=== PATIENT | female | born 1990 | race Caucasian/White ===

== ENCOUNTER 2021-05-25 15:02 | Emergency (ER) | payer OTHER, SELFPAY ==
[2021-05-25 15:24] VITALS: BP 108/62; PULSE 77; RESP 17; TEMP 37.3; O2SAT 100; BMI 23.1
[2021-05-25 15:43] LABS: COVID19 -Nasal RAPID POSITIVE (Negative)
--- NOTE | 2021-05-25 16:08 | ED.URI ---
HPI - URI/Sore Throat <Elliott Maurice PA-C - Last Filed: 05/25/21 16:12> General Chief Complaint: Upper Respiratory Symptoms Stated Complaint: Lost of Taste and Smell Time Seen by Provider: 05/25/21 15:04 Source: patient Mode of arrival: Ambulatory History of Present Illness HPI Narrative: Ban presents today with chief complaint of loss of taste, loss of smell that started yesterday. She is fully vaccinated against COVID and denies any known exposures. Her friend who is also having similar symptoms presents today with her as well. She is otherwise healthy and has no known significant past medical problems. She denies any chest pain, shortness of breath or any other acute concerns or complaints at this time. Related Data Home Medications Medication Instructions Recorded Confirmed etonogestrel 0.12 mg-ethinyl vag ring VAGINAL 05/25/21 estradiol 0.015 mg/24 hr vaginal ring (NuvaRing) Allergies Allergy/AdvReac Type Severity Reaction Status Date / Time No Known Drug Allergies Allergy Verified 05/25/21 15:27 Review of Systems <Elliott Maurice PA-C - Last Filed: 05/25/21 16:12> Review of Systems Narrative: As per HPI Patient History <Elliott Maurice PA-C - Last Filed: 05/25/21 16:12> Social History Smoking Status: Never smoker Smoking Status: Never smoker alcohol intake frequency: a few times a week Substance Use Type: does not use Exam <Elliott Maurice PA-C - Last Filed: 05/25/21 16:12> Narrative Exam Narrative: Exam Narrative: Const General: cooperative, healthy appearing, comfortable, no acute distress, well developed and well groomed Nutritional Appearance: average body habitus Orientation: alert and oriented x3 HENMT Head: normal to inspection and atraumatic Ears: hearing grossly normal bilaterally Nose: external nose normal and nares normal Face and sinus: normal facial exam Neck Neck: normal visual inspection and supple Resp Effort & Inspection: normal respiratory effort, able to speak in complete sentences, no audible wheezes, not labored, no nasal flaring and no respiratory distress Neuro General: alert, oriented x3, gait normal, tone normal and moves all extremities Cognition: normal cognition Speech: speech normal Gait: normal gait Psych Appearance: grossly normal and well kempt Mental Status: mental status grossly normal Speech and Movement: speech and movement normal Mood: congruent mood Affect: normal affect Initial Vital Signs Initial Vital Signs: Vital Signs Temperature 99.1 F 05/25/21 15:24 Pulse Rate 77 05/25/21 15:24 Respiratory Rate 17 05/25/21 15:24 Blood Pressure 108/62 05/25/21 15:24 Pulse Oximetry 100 05/25/21 15:24 <Majo Wynn DO - Last Filed: 05/26/21 07:47> Initial Vital Signs Initial Vital Signs: Vital Signs Temperature 99.1 F 05/25/21 15:24 Pulse Rate 77 05/25/21 15:24 Respiratory Rate 17 05/25/21 15:24 Blood Pressure 108/62 05/25/21 15:24 Pulse Oximetry 100 05/25/21 15:24 Course <Elliott Maurice PA-C - Last Filed: 05/25/21 16:12> Orders Ordered: ED Orders 05/25/21 15:15 COVID19 -Nasal swab/Pre-Proc Stat Vital Signs Vital signs: Vital Signs - 8 hr 05/25/21 15:24 Temperature 99.1 F Pulse Rate 77 Respiratory Rate 17 Blood Pressure 108/62 Pulse Oximetry 100 <DO Rose Arredondo Last Filed: 05/26/21 07:47> Orders Ordered: ED Orders 05/25/21 15:15 COVID19 -Nasal swab/Pre-Proc Stat Vital Signs Vital signs: Vital Signs - 8 hr 05/25/21 15:24 Temperature 99.1 F Pulse Rate 77 Respiratory Rate 17 Blood Pressure 108/62 Pulse Oximetry 100 MDM - URI/Sore Throat <DILLON Arias Last Filed: 05/25/21 16:12> Lab Data Labs: Lab Results 05/25/21 Range/Units 15:15 SARS-CoV-2 (PCR) Positive H (Negative) MDM Narrative Medical decision making narrative: Patient are young, fully vaccinated and have reassuring vital signs and physical examination. Recommend following CDC guidelines for home isolation at this time. Return precautions were discussed and patient verbalizes understanding and agreement to the plan. <DO Rose Arredondo Last Filed: 05/26/21 07:47> Lab Data Labs: Lab Results 05/25/21 Range/Units 15:15 SARS-CoV-2 (PCR) Positive H (Negative) Discharge Plan Departure Patient Disposition: Home Clinical Impression: COVID-19 Instructions: DI for COVID-19 (Suspected or Confirmed ) Activity Restrictions/Additional Instructions: It was very nice to meet you this afternoon. Please follow the CDC guidelines for self isolation. I am still recommending the 10 day isolation versus 5 day but please talk to your come and about they prefer. If he develops chest pain, shortness of breath, or any other acute concerns or complaints please return for re-evaluation. Thank you Elliott Maurice PA-C Prescriptions: No Action etonogestrel-ethinyl estradiol [NuvaRing] 0.12-0.015 mg/24 hr Ring VAGINAL 0RF Referrals: Miscellaneous,Doctor, [Primary Care Provider] - <Majo Wynn DO - Last Filed: 05/26/21 07:47> Cosign ED Attending Staceyature Attestation: I was immediately available in the department for consultation. Documentation has been reviewed.
== END 2021-05-25 16:20 | disposition home or self-care (01) ==
PROVIDERS: Emergency Medicine; Emergency Provider Physician Assistant
DX: U07.1 COVID-19 (principal)
CPT/HCPCS: 87635; 99281; C9803

== ENCOUNTER 2022-06-19 15:54 | Emergency (ER) | payer OTHER, SELFPAY ==
[2022-06-19] VITALS (10 sets, daily range): BP systolic 98–117; BP diastolic 63–79; PULSE 66–82; RESP 19–24; TEMP 36.7; O2SAT 97–100; BMI 23.5
--- NOTE | 2022-06-19 16:24 | DI.RAD.S_ITS ---
PROCEDURE: XR CHEST 1V INDICATIONS: chest pain TECHNIQUE: One view of the chest was acquired. COMPARISON: None. FINDINGS: Surgical changes and devices: None. Lungs and pleura: Lungs are clear. No pleural effusions or pneumothorax. Mediastinum: Mediastinal contours appear normal. Heart size is normal. Bones and chest wall: No suspicious bony lesions. Overlying soft tissues appear unremarkable. IMPRESSION: No acute cardiopulmonary abnormality. Dictated by: Alexis Saravia M.D. on 06/19/2022 at 16:45 Approved by: Alexis Saravia M.D. on 06/19/2022 at 16:45
[2022-06-19 16:46] LABS: Add Manual Diff / Slide Review NO; Basophils Absolute Auto 0 /uL (0-100); Basophils Percent Auto 0.6 % (0-2); Eosinophils Absolute Auto 100 /uL (0-450); Eosinophils Percent Auto 0.8 % (2-4); Hematocrit 42.7 % (36-46); Hemoglobin 14.4 g/dL (12.0-16.0); Lymphocytes Absolute Auto 2100 /uL (1100-4500); Lymphocytes Percent Auto 25.6 % (25-40); Mean Corpuscular HGB Conc 33.8 % (30-36); Mean Corpuscular Hemoglobin 31.7 PG (26-34); Mean Corpuscular Volume 93.6 fL (80-100); Monocytes Absolute Auto 400 /uL (0-900); Monocytes Percent Auto 4.9 % (3-14); Neutrophils Absolute Auto 5600 /uL (1500-7000); Neutrophils Percent Auto 68.1 % (50-75); Platelet Count 218 X10^3/uL (150-400); Red Blood Cell Count 4.56 X10^6/uL (4.0-5.2); Red Cell Distribution Width 13.1 % (11.6-14.8); White Blood Cell Count 8.2 X10^3/uL (4.5-11.0)
[2022-06-19 16:51] LABS: INR 1.1 (0.9-1.3); Prothrombin Time 12.2 SECONDS (10.1-12.7)
[2022-06-19 16:54] LABS: PTT Partial Thromboplastin Tim 33 SECONDS (26-36)
[2022-06-19 17:17] LABS: Alanine Aminotransferase 17 IU/L (<35); Albumin Globulin Ratio 1.6 (1.0-2.8); Alkaline Phosphatase 70 U/L (38-126); Aspartate Aminotransferase 24 IU/L (14-36); BUN Creatinine Ratio 14.6 (6-22); Bilirubin Total 0.4 mg/dL (0.2-1.3); Blood Urea Nitrogen 13 mg/dL (7-17); Calcium 9.6 mg/dL (8.4-10.2); Carbon Dioxide 27 mmol/L (22-32); Chloride 100 mmol/L (98-107); Creatine Kinase 174 U/L (30-135); Estimated Glomerular Filt Rate > 60 mL/min (>60); Globulin 3.2 g/dL (1.7-4.1); Glucose 82 mg/dL (70-100); HEMOLYSIS < 15 (0-50); Lipase 150 U/L (23-300); Magnesium 2.2 mg/dL (1.6-2.3); Potassium 3.7 mmol/L (3.4-5.1); Sodium 137 mmol/L (137-145); Total Protein 8.2 g/dL (6.3-8.2)
[2022-06-19 17:28] LABS: Troponin I < 0.012 ng/mL (0.01-0.034)
--- NOTE | 2022-06-19 17:28 | ED_ITS ---
HPI - Chest Pain General Chief Complaint: Chest Pain Stated Complaint: Chest pain Time Seen by Provider: 06/19/22 17:22 Source: patient Mode of arrival: Family Vehicle Limitations: no limitations Related Data Home Medications Medication Instructions Recorded Confirmed etonogestrel 0.12 mg-ethinyl vag ring vaginal 05/25/21 estradiol 0.015 mg/24 hr vaginal ring (NuvaRing) Allergies Allergy/AdvReac Type Severity Reaction Status Date / Time No Known Drug Allergies Allergy Verified 05/25/21 15:27 Review of Systems Review of Systems ROS Unobtainable: All systems reviewed & are unremarkable except as noted in HPI and below Patient History Social History Smoking Status: Never smoker Smoking Status: Never smoker alcohol intake frequency: a few times a week Substance Use Type: does not use Exam Initial Vital Signs Initial Vital Signs: Vital Signs Pulse Rate 77 06/19/22 16:06 Respiratory Rate 20 06/19/22 16:06 Pulse Oximetry 99 06/19/22 16:06 Course Orders Ordered: ED Orders 06/19/22 16:09 EKG-12 Lead Routine 06/19/22 16:17 Complete Blood Count AUTO DIFF Stat Comprehensive Metabolic Panel Stat Lipase Stat Magnesium Stat Partial Thromboplastin Time Stat Prothrombin Time INR Stat Troponin & CK Cardiac Panel Stat 06/19/22 16:24 XR chest 1V Stat COVID19 -Nasal RAPID/Pre-Proc Stat EKG-12 Lead Stat Discontinued Medications Aspirin (Aspirin 81 Mg Chew Tab) 324 mg PO NOW ONE Stop: 06/19/22 16:25 Last Admin: 06/19/22 16:45 Dose: Not Given Documented By: PRAVEENA Vital Signs Vital signs: Vital Signs - 8 hr 06/19/22 16:25 06/19/22 16:06 06/19/22 16:07 Temperature 98.1 F Pulse Rate 82 77 Respiratory Rate 19 20 Blood Pressure 117/79 117/79 Pulse Oximetry 99 99 Oxygen Delivery Method Room Air 06/19/22 16:07 06/19/22 16:30 06/19/22 16:30 Temperature Pulse Rate 82 73 Respiratory Rate 23 20 Blood Pressure 108/68 Pulse Oximetry 99 100 Oxygen Delivery Method MDM - Chest Pain Lab Data 06/19/22 16:17 06/19/22 16:17 Labs: Lab Results 0206/19/22 06/19/22 Range/Units 16:17 16:17 16:17 WBC 8.2 (4.5-11.0) X10^3/uL RBC 4.56 (4.0-5.2) X10^6/uL Hgb 14.4 (12.0-16.0) g/dL Hct 42.7 (36-46) % MCV 93.6 (80-100) fL MCH 31.7 (26-34) PG MCHC 33.8 (30-36) % RDW 13.1 (11.6-14.8) % Plt Count 218 (150-400) X10^3/uL Neut % (Auto) 68.1 (50-75) % Lymph % (Auto) 25.6 (25-40) % [place] % (Auto) 4.9 (3-14) % Eos % (Auto) 0.8 L (2-4) % Baso % (Auto) 0.6 (0-2) % Neut # (Auto) 5600 (2636-1358) /uL Lymph # (Auto) 2100 (7145-5461) /uL [place] # (Auto) 400 (0-900) /uL Eos # (Auto) 100 (0-450) /uL Baso # (Auto) 0 (0-100) /uL PT 12.2 (10.1-12.7) SECONDS INR 1.1 (0.9-1.3) APTT 33 (26-36) SECONDS Sodium 137 (137-145) mmol/L Potassium 3.7 (3.4-5.1) mmol/L Chloride 100 (98-107) mmol/L Carbon Dioxide 27 (22-32) mmol/L BUN 13 (7-17) mg/dL Creatinine 0.89 (0.52-1.04) mg/dL Estimated GFR > 60 (>60) mL/min BUN/Creatinine Ratio 14.6 (6-22) Glucose 82 (70-100) mg/dL Calcium 9.6 (8.4-10.2) mg/dL Magnesium 2.2 (1.6-2.3) mg/dL Total Bilirubin 0.4 (0.2-1.3) mg/dL AST 24 (14-36) IU/L ALT 17 (<35) IU/L Alkaline Phosphatase 70 (38-126) U/L Total Creatine Kinase 174 H (30-135) U/L Total Protein 8.2 (6.3-8.2) g/dL Albumin 5.0 (3.5-5.0) g/dL Globulin 3.2 (1.7-4.1) g/dL Albumin/Globulin Ratio 1.6 (1.0-2.8) Lipase 150 (23-300) U/L Imaging Data Chest x-ray: Radiologist's Impression: Close Chest X-Ray (Signed) Alexis Saravia - 06/19/22 Launch?[address] [address] XRay Report Signed Patient: Ban Estrada MR#: [id number] : 1990 Acct:[id number] Age/Sex: 32 / F Date of Service: 06/19/22 Loc: ED Accession Number: [id number] ?? Procedure: XR chest 1V Ordering Provider: Majo Wynn D.O. PROCEDURE:? XR CHEST 1V ? INDICATIONS:? chest pain ? TECHNIQUE:? One view of the chest was acquired.? ? COMPARISON:? None. ? FINDINGS:? ? Surgical changes and devices:? None.? ? Lungs and pleura:? Lungs are clear.? No pleural effusions or pneumothorax.? ? Mediastinum:? Mediastinal contours appear normal.? Heart size is normal.? ? Bones and chest wall:? No suspicious bony lesions.? Overlying soft tissues appear unremarkable.? ? IMPRESSION:? No acute cardiopulmonary abnormality. ? ? ? Dictated by: Alexis Saravia M.D. on 06/19/2022 at 16:45 ? ? Approved by: Alexis Saravia M.D. on 06/19/2022 at 16:45?? ECG Data Attestation: I personally reviewed and interpreted this ECG as follows: Prior ECG tracings: not available for review Interpretation: Sinus rhythm rate of 77 DC 118 QRS 84 and QTC 445. Inverted T-wave in 3. Other ST elevation depression noted. Less than 1 mm Q-wave in 2 3 AVF. No priors a vailable for comparison. Discharge Plan Departure Prescriptions: No Action etonogestrel-ethinyl estradiol [NuvaRing] 0.12-0.015 mg/24 hr Ring VAGINAL Referrals: Miscellaneous,Doctor, [Primary Care Provider] -
[2022-06-19 17:32] LABS: CKMB % Relative Index 0.3 % (1.5-5.0); Creatine Kinase MB 0.48 ng/mL (<2.37)
[2022-06-19 17:44] LABS: D Dimer 229 ng/ml (<500)
--- NOTE | 2022-06-19 18:20 | ED_ITS ---
HPI - Chest Pain General Chief Complaint: Chest Pain Stated Complaint: Chest pain Time Seen by Provider: 06/19/22 17:22 Source: patient Mode of arrival: Family Vehicle Limitations: no limitations History of Present Illness HPI narrative: Patient is a healthy 32-year-old female who presents today with chest discomfo rt. She reports that she had strep back in March and April. She is chest discomfort off and on ever since. Usually in the center of her chest sometimes comes and goes. She is tried Tums, she said it does not help. Today she feels like it is spreading across right side of her chest. It is tender to touch it is not worse with breathing or movement. She did do arms and weights this morni ng. She typically does work out she did not notice that it was hurting during that time. She did take some panel ibuprofen without any relief. She is no family history of coronary artery disease. She is a nonsmoker. She denies nausea vomiting diaphoresis abdominal pain or other symptoms. Related Data Home Medications Medication Instructions Recorded Confirmed etonogestrel 0.12 mg-ethinyl vag ring vaginal 05/25/21 estradiol 0.015 mg/24 hr vaginal ring (NuvaRing) Allergies Allergy/AdvReac Type Severity Reaction Status Date / Time No Known Drug Allergies Allergy Verified 05/25/21 15:27 Review of Systems Review of Systems ROS Unobtainable: All systems reviewed & are unremarkable except as noted in HPI and below Patient History Social History Smoking Status: Never smoker Smoking Status: Never smoker alcohol intake frequency: a few times a week Substance Use Type: does not use Exam Initial Vital Signs Initial Vital Signs: Vital Signs Pulse Rate 77 06/19/22 16:06 Respiratory Rate 20 06/19/22 16:06 Pulse Oximetry 99 06/19/22 16:06 GENERAL: Well-appearing 32-year-old female and in no acute distress. HEENT: Head atraumatic,EOMI, pupils reactive, face symmetric, moist mucous membranes CARDIOVASCULAR: Regular rate and rhythm without murmurs, rubs or gallops. RESPIRATORY: Breath sounds equal bilaterally, no wheezes rales or rhonchi. ABDOMEN: Soft, nontender. No right upper quadrant pain no epigastric pain negative Fields's EXTREMITIES: Normal range of motion, no clubbing or edema. Neurovascularly intact NEUROLOGICAL: Alert and oriented x4.Normal gait and speech. SKIN: Warm, dry, no laceration, no petechiae, no rashes or lesions. Scores HEART Score Heart Score history: Slightly Suspicious Heart Score EKG: Normal Heart Score Age: < 45 years old Heart Score risk factors: No known risk factors Heart Score troponin: < or = to normal limit Heart Score Total: 0 PERC Score Age greater than or equal to 50 years: No Heart rate greater than or equal to 100 bpm: No Room Air O2 Sat less than 95%: No Unilateral leg swelling: No Recent trauma or surgery: No Hemoptysis: No Prior PE or DVT: No Hormone Use: Yes Total PERC Score: 1 Course Orders Ordered: ED Orders 06/19/22 16:17 Complete Blood Count AUTO DIFF Stat Comprehensive Metabolic Panel Stat D Dimer Stat Lipase Stat Magnesium Stat Partial Thromboplastin Time Stat Prothrombin Time INR Stat Troponin & CK Cardiac Panel Stat 06/19/22 16:24 XR chest 1V Stat EKG-12 Lead Stat 06/19/22 18:20 Trop I [Troponin I] Stat Discontinued Medications Aspirin (Aspirin 81 Mg Chew Tab) 324 mg PO NOW ONE Stop: 06/19/22 16:25 Last Admin: 06/19/22 16:45 Dose: Not Given Documented By: PRAVEENA Ketorolac Tromethamine (Ketorolac 30 Mg/Ml Vial) 15 mg IV NOW ONE Stop: 06/19/22 18:37 Last Admin: 06/19/22 18:45 Dose: 15 mg Documented By: PRAVEENA Vital Signs Vital signs: Vital Signs - 8 hr 06/19/22 17:30 06/19/22 17:30 06/19/22 18:00 Pulse Rate 74 Respiratory Rate 20 Blood Pressure 98/68 103/64 Pulse Oximetry 100 06/19/22 18:00 06/19/22 18:30 06/19/22 18:30 Pulse Rate 70 72 Respiratory Rate 20 24 Blood Pressure 112/74 Pulse Oximetry 99 99 06/19/22 19:00 06/19/22 19:00 06/19/22 19:30 Pulse Rate 66 Respiratory Rate 20 Blood Pressure 109/72 108/69 Pulse Oximetry 97 06/19/22 19:30 Pulse Rate 69 Respiratory Rate 24 Blood Pressure Pulse Oximetry 97 MDM - Chest Pain Lab Data 06/19/22 16:17 02/02/23 16:17 Labs: Lab Results 06/19/22 06/19/22 06/19/22 Range/Units 16:17 16:17 16:17 WBC 8.2 (4.5-11.0) X10^3/uL RBC 4.56 (4.0-5.2) X10^6/uL Hgb 14.4 (12.0-16.0) g/dL Hct 42.7 (36-46) % MCV 93.6 (80-100) fL MCH 31.7 (26-34) PG MCHC 33.8 (30-36) % RDW 13.1 (11.6-14.8) % Plt Count 218 (150-400) X10^3/uL Neut % (Auto) 68.1 (50-75) % Lymph % (Auto) 25.6 (25-40) % Coffee % (Auto) 4.9 (3-14) % Eos % (Auto) 0.8 L (2-4) % Baso % (Auto) 0.6 (0-2) % Neut # (Auto) 5600 (4071-3070) /uL Lymph # (Auto) 2100 (0447-0040) /uL Coffee # (Auto) 400 (0-900) /uL Eos # (Auto) 100 (0-450) /uL Baso # (Auto) 0 (0-100) /uL PT 12.2 (10.1-12.7) SECONDS INR 1.1 (0.9-1.3) APTT 33 (26-36) SECONDS D-Dimer (<500) ng/ml Sodium 137 (137-145) mmol/L Potassium 3.7 (3.4-5.1) mmol/L Chloride 100 (98-107) mmol/L Carbon Dioxide 27 (22-32) mmol/L BUN 13 (7-17) mg/dL Creatinine 0.89 (0.52-1.04) mg/dL Estimated GFR > 60 (>60) mL/min BUN/Creatinine Ratio 14.6 (6-22) Glucose 82 (70-100) mg/dL Calcium 9.6 (8.4-10.2) mg/dL Magnesium 2.2 (1.6-2.3) mg/dL Total Bilirubin 0.4 (0.2-1.3) mg/dL AST 24 (14-36) IU/L ALT 17 (<35) IU/L Alkaline Phosphatase 70 (38-126) U/L Total Creatine Kinase 174 H (30-135) U/L CK-MB (CK-2) 0.48 (<2.37) ng/mL CK-MB (CK-2) Rel Index 0.3 L (1.5-5.0) % Troponin I < 0.012 (0.01-0.034) ng/mL Total Protein 8.2 (6.3-8.2) g/dL Albumin 5.0 (3.5-5.0) g/dL Globulin 3.2 (1.7-4.1) g/dL Albumin/Globulin Ratio 1.6 (1.0-2.8) Lipase 150 (23-300) U/L 06/19/22 06/19/22 Range/Units 16:17 18:20 WBC (4.5-11.0) X10^3/uL RBC (4.0-5.2) X10^6/uL Hgb (12.0-16.0) g/dL Hct (36-46) % MCV (80-100) fL MCH (26-34) PG MCHC (30-36) % RDW (11.6-14.8) % Plt Count (150-400) X10^3/uL Neut % (Auto) (50-75) % Lymph % (Auto) (25-40) % Coffee % (Auto) (3-14) % Eos % (Auto) (2-4) % Baso % (Auto) (0-2) % Neut # (Auto) (5619-8011) /uL Lymph # (Auto) (3849-7745) /uL Coffee # (Auto) (0-900) /uL Eos # (Auto) (0-450) /uL Baso # (Auto) (0-100) /uL PT (10.1-12.7) SECONDS INR (0.9-1.3) APTT (26-36) SECONDS D-Dimer 229 (<500) ng/ml Sodium (137-145) mmol/L Potassium (3.4-5.1) mmol/L Chloride (98-107) mmol/L Carbon Dioxide (22-32) mmol/L BUN (7-17) mg/dL Creatinine (0.52-1.04) mg/dL Estimated GFR (>60) mL/min BUN/Creatinine Ratio (6-22) Glucose (70-100) mg/dL Calcium (8.4-10.2) mg/dL Magnesium (1.6-2.3) mg/dL Total Bilirubin (0.2-1.3) mg/dL AST (14-36) IU/L ALT (<35) IU/L Alkaline Phosphatase (38-126) U/L Total Creatine Kinase (30-135) U/L CK-MB (CK-2) (<2.37) ng/mL CK-MB (CK-2) Rel Index (1.5-5.0) % Troponin I < 0.012 (0.01-0.034) ng/mL Total Protein (6.3-8.2) g/dL Albumin (3.5-5.0) g/dL Globulin (1.7-4.1) g/dL Albumin/Globulin Ratio (1.0-2.8) Lipase (23-300) U/L Imaging Data Chest x-ray: Radiologist's Impression: Ban Estrada MR#: [id number] : 1990 Acct:[id number] Age/Sex: 32 / F Date of Service: 06/19/22 Loc: ED Accession Number: [id number] ?? Procedure: XR chest 1V Ordering Provider: Majo Wynn D.O. PROCEDURE:? XR CHEST 1V ? INDICATIONS:? chest pain ? TECHNIQUE:? One view of the chest was acquired.? ? COMPARISON:? None. ? FINDINGS:? ? Surgical changes and devices:? None.? ? Lungs and pleura:? Lungs are clear.? No pleural effusions or pneumothorax.? ? Mediastinum:? Mediastinal contours appear normal.? Heart size is normal.? ? Bones and chest wall:? No suspicious bony lesions.? Overlying soft tissues appear unremarkable.? ? IMPRESSION:? No acute cardiopulmonary abnormality. ? ? ? Dictated by: Alexis Saravia M.D. on 06/19/2022 at 16:45 ? ? ECG Data Interpretation: Normal sinus rhythm rate 77 AL interval 118 QRS [address] changes maybe T-wave inversion noted in lead 3, no priors to compare EKG 2. Sinus rhythm rate 84 AL interval 146 QRS 86 no changes MDM Narrative Medical decision making narrative: Patient is a healthy 32-year-old female presenting with ongoing right-sided chest pain. It is tender to touch. It is not reproducible with exertion. It is fairly constant today. She did exercise today and lifting arms. I suspect this more musculoskeletal. She is 2- troponins normal EKGs with a heart score of 0 highly unlikely cardia. Patient's PERC score is 1 secondary to hormone use for D-dimer is negative this is highly unlikely a pulmonary embolism. Centralized chest discomfort ongoing for awhile unlikely to be related to her recent strep infection although that she is concerned about that. She is no evidence of sepsis or current infection now she is afebrile without leukocytosis. Symptoms may be related to acid reflux. We discussed a trial of [id number] acid reflux medications for 1-2 weeks to see if there is improvement in further outpatient workup. At this time I suspect that patient's current right-sided chest discomfort which is reproducible with palpation is most likely secondary to costochondritis secondary to muscle strain Discharge Plan Departure Patient Disposition: Home Clinical Impression: Costalchondritis Instructions: Costochondritis Activity Restrictions/Additional Instructions: *You have been diagnosed with costochondritis *What to do: At this time I think that your pain is likely related to muscle. I recommend resting it ice or heat whatever makes it feel better. You still may need further workup. I do recommend [id number] acid reflux medicine for about 14 days to see if there is any improvement in your chest discomfort take as directed *Continue to take medications as directed *Follow up with your primary care provider in 2-3 days or call [phone] *Return to ER if you should have increasing pain shortness of breath dizziness lightheadedness or passing [or] any new, worsening or concerning symptoms Prescriptions: No Action etonogestrel-ethinyl estradiol [NuvaRing] 0.12-0.015 mg/24 hr Ring VAGINAL Referrals: Miscellaneous,Doctor, [Primary Care Provider] - Stand Alone Forms: Patient Portal/API
[2022-06-19] MEDS: KETOROLAC 30 MG/ML VIAL 15 MG IV (18:45)
[2022-06-19 19:02] LABS: Troponin I < 0.012 ng/mL (0.01-0.034)
== END 2022-06-19 19:36 | disposition home or self-care (01) ==
PROVIDERS: Emergency Medicine; Emergency Provider Emergency Medicine
DX: M94.0 Chondrocostal junction syndrome [Tietze] (principal)
CPT/HCPCS: 36415; 71045; 80053; 82550; 82553; 83690; 83735; 84484; 85025; 85379; 85610; 85730; 93005; 96374; 99284; J1885